=== PATIENT | female | born 1985 | race Caucasian/White ===

== ENCOUNTER 2018-04-14 09:15 | Inpatient (IN) | payer MEDICAID ==
[2018-04-14 10:02] VITALS: BMI 35.0
--- NOTE | 2018-04-14 10:09 | OBADHP ---
Datetime: 04/14/2018 10:05 Admit Comment, IP Provider: g2p at 39+weks here for induction of labor, no ctxs, vb , lof+fm obhx 1 x pmh de medc pnv all nkda psh de soch de ve /-3 a/p at 39+weks induction admit to l_d npo/ivf labs pain ma cont ally and efm cyototec anticipate Pelvic Type - PN: Adequate Extremities - PN: Normal Abdomen - PN: Normal Back - PN: Normal Breast - PN: Normal Lungs - PN: Normal Heart - PN: Normal Thyroid - PN: Normal Neurologic - PN: Normal HEENT - PN: Normal General - PN: Normal FHR - Baseline A Provider: 140 Contraction Comments Provider: none IP Hx Assessment: The History has been Reviewed and is Current Vital Signs Provider: Reviewed; Within Normal Limits IP Chief Complaint: Scheduled induction of labor NICHD Variability Prov Fetus A: Moderate 6-25bpm NICHD Accel Fetus A IP Provider: 15X15 FHR Category Provider Fetus A: Category I Dilatation, Provider: 2 Effacement, Provider: 50 Station, Provider: -3 Genitourinary Exam: Normal DTRs - PN: Normal EGA AdmitDate IP: 39.4 IP Adm Impression: Term, intrauterine IP Admit Plan: Admit to unit; Initiate labor induction protocol
[2018-04-14] MEDS ORDERED: Lactated Ringer's 1,000 ML IV SCH (10:15)
[2018-04-14] MEDS ORDERED: Penicillin G 5 Million Unit Vial IVPB ONE (10:48)
[2018-04-14 10:58] LABS: BASO % 0.3 % (0.0-2.0); EOS # 0.1 K/uL (0.0-0.7); EOS % 0.8 % (0.0-4.0); HEMOGLOBIN 10.4 g/dL (11.0-16.0); LYMPH # 2.1 K/uL (1.0-4.3); LYMPH % 22.8 % (20.0-40.0); MEAN CELL VOLUME 90.3 fL (81.0-99.0); MEAN CORPUSCULAR HEMOGLOBIN 31.1 pg (27.0-31.0); MEAN CORPUSCULAR HGB CONC 34.4 g/dL (33.0-37.0); MEAN PLATELET VOLUME 8.9 fL (7.2-11.7); MONO # 0.8 K/uL (0.0-0.8); MONO % 8.3 % (0.0-10.0); NEUT # 6.3 K/uL (1.8-7.0); NEUT % 67.8 % (50.0-75.0); RBC 3.34 Mil/uL (3.80-5.20); RED CELL DISTRIBUTION WIDTH 13.6 % (11.5-14.5); WHITE BLOOD COUNT 9.3 K/uL (4.8-10.8)
[2018-04-14] MEDS ORDERED: Oxytocin 30 UNIT 30 UNITS/500 ML BAG IV ONE ×2 (13:19→13:27)
[2018-04-14] MEDS ORDERED: Nalbuphine HCL 10 mg/ml Ampule IVP ONE (13:36)
--- NOTE | 2018-04-14 13:39 | OBPN ---
Datetime: 04/14/2018 13:37 IP Procedures Other: toth baloon IP Progress Impression: Normal progression of labor IP Procedures: Sterile Vag Exam Contraction Comments Provider: q1-5 FHR - Baseline A Provider: 130 IP Progress Note Comment: pt was examind at bed side ve 2-3/60/-2 toth balon placed start pitocin at 3 pm anticipate Vital Signs Provider: Reviewed; Within Normal Limits NICHD Accel Fetus A IP Provider: 15X15 FHR Category Provider Fetus A: Category I NICHD Variability Prov Fetus A: Moderate 6-25bpm Dilatation, Provider: 3 Effacement, Provider: 60 Station, Provider: -2
[2018-04-14] MEDS ORDERED: Nalbuphine HCL 10 mg/ml Ampule ONE (13:41)
[2018-04-14] MEDS: Penicillin G Potassium 2.5 MU in Dextrose 5% In Water 50 ML IV SCH ×2 (14:53→18:54)
[2018-04-14] MEDS ORDERED: Bupivacaine HCl/FentaNYL Cit 100 ML EPI ONE (16:07)
[2018-04-14 16:53] LABS: SQUAMOUS EPITHIAL < 1 /hpf (0-5); URINE BACTERIA RARE (<OCC); URINE BILIRUBIN NEGATIVE (NEGATIVE); URINE BLOOD NEGATIVE (NEGATIVE); URINE CLARITY Clear (Clear); URINE COLOR Straw (YELLOW); URINE GLUCOSE (UA) NORMAL (Normal); URINE LEUKOCYTE ESTERASE NEG Leu/uL (Negative); URINE PROTEIN NEGATIVE (NEGATIVE); URINE UROBILINOGEN NORMAL mg/dL (0.2-1.0)
--- NOTE | 2018-04-14 18:45 | OBPN ---
Datetime: 04/14/2018 18:43 IP Progress Impression: Normal progression of labor IP Procedures: Sterile Vag Exam FHR - Baseline A Provider: 130 IP Progress Note Comment: pt was examined at bed side ve 6/100/-1 cont pitoin anticipate Vital Signs Provider: Reviewed; Within Normal Limits NICHD Accel Fetus A IP Provider: 15X15 FHR Category Provider Fetus A: Category I NICHD Variability Prov Fetus A: Moderate 6-25bpm Dilatation, Provider: 6 Effacement, Provider: 100 Station, Provider: -1
[2018-04-14] MEDS ORDERED: Oxycodone/Acetaminophen 5/325 mg Tab PO PRN ×2 (18:48)
[2018-04-14] MEDS ORDERED: Benzocaine/Menthol 20%-0.5% Topical Spray (60 ml) TOP PRN (18:48)
--- NOTE | 2018-04-14 19:43 | OBDS ---
MATERNAL INFORMATION Estimated Blood Loss (ml): 300 Provider Comments: dr castellano private baby deliverd in [place].cord arround neck . cord gas send pblood.reduced.placente deliveerd spontaneously endometrium clean. no com LABOR SUMMARY EDC: 04/17/2018 00:00 No. Babies in Womb: 1 LABOR INFORMATION Cervical Ripening Agents: [place] Balloon Group B Beta Strep: Positive (Annotations: 03/22/18) MEMBRANES Membranes Rupture Method: Artificial Amniotic Fluid Color: Clear Amniotic Fluid Amount: Small Amniotic Fluid Odor: Normal VAGINAL DELIVERY Episiotomy: None Laceration Extension: N/A Laceration Type: None Sponge Count Correct: N/A Sharps Count Correct: N/A BABY A INFORMATION Delivery Date/Time: 04/14/2018 19:34 SHOULDER DYSTOCIA BABY A Delivery Date/Time: 04/14/2018 19:34 PRESENTATION/POSITION BABY A Presentation: Cephalic Cephalic Presentation: Vertex Vertex Position: Left Occipital Anterior Breech Presentation: N/A PLACENTA INFORMATION BABY A Placenta Method of Delivery: Spontaneous Placenta Status: Delivered IDENTIFICATION/MEDS BABY A ID Band Number: [id number] Sensor Number: [id number] CORD INFORMATION BABY A Nuchal Cord : Around Neck x1, Loose
--- NOTE | 2018-04-15 06:45 | OBPPN ---
Datetime: 04/15/2018 06:43 PP Pain Prov: Within normal limits PP Nausea Prov: Denies PP Flatus Prov: Yes PP Abdomen/Uterus Prov: Normal PP Lochia Prov: Normal PP C/S Incision Prov: Normal PP Comments Phys Exam Prov: fudus below umblicus PP Impression Prov: Normal progression PP Plan Prov: Continue present management PP Progress Note Prov: pt was zeen at bed sidem,, pain under cobtrol,nmo n/v, toletaing deirt, voidi ng,min locjia, flatus+ ppd#1 cont pp care cont harris ma encourage amb Vital Signs Provider PP: Reviewed; Within Normal Limits
--- NOTE | 2018-04-15 07:05 | NBCIR ---
Datetime: 04/14/2018 09:51 Preformed by:: dr castellano Consent Signed: Verbal Consent Obtained; Written Consent Signed and on Chart Position: Papoose Board Circumcision Time Out: Correct Patient Identity; Correct Side and Site are Marked; Accurate Procedur e Consent Form; Agreement on Procedure to be Done; Correct Patient Position; Relevant Images and Resu lts are Properly Labeled and Displayed Site Prep: Povidine Iodine Circumcision Date/Time: 04/15/2018 07:00 Equipment Used: Gomco Clamp Cheney Size: 1.3 Systemic Medications: None Complications: None Status: Excellent Cosmetic Outcome; Tolerated Procedure Well; Hemostatic Procedure Note: circ done by dr castellano. no com Datetime: 04/14/2018 09:25 PT-NAME: ANGEL BROTHERS
[2018-04-15 16:21] VITALS: RESP 18
[2018-04-15 17:26] LABS: BASO % 0.3 % (0.0-2.0); EOS # 0.1 K/uL (0.0-0.7); EOS % 0.9 % (0.0-4.0); HEMOGLOBIN 11.1 g/dL (11.0-16.0); LYMPH # 2.6 K/uL (1.0-4.3); LYMPH % 21.7 % (20.0-40.0); MEAN CELL VOLUME 90.1 fL (81.0-99.0); MEAN CORPUSCULAR HEMOGLOBIN 31.3 pg (27.0-31.0); MEAN CORPUSCULAR HGB CONC 34.7 g/dL (33.0-37.0); MEAN PLATELET VOLUME 8.7 fL (7.2-11.7); MONO # 1.1 K/uL (0.0-0.8); MONO % 8.9 % (0.0-10.0); NEUT # 8.3 K/uL (1.8-7.0); NEUT % 68.2 % (50.0-75.0); RBC 3.55 Mil/uL (3.80-5.20); WHITE BLOOD COUNT 12.1 K/uL (4.8-10.8)
[2018-04-16 11:16] VITALS: BP 111/80; PULSE 80; TEMP 98.3; O2SAT 100
== END 2018-04-16 13:50 | disposition home or self-care (01) | DRG 373 ==
LOC: C.EROB 09:15 → C.4D 10:02 → C.4M 22:00
PROVIDERS: ADMIT Obstetrics & Gynecology; ATTEND Obstetrics & Gynecology
PROC: 10E0XZZ Delivery of Products of Conception, External Approach (ICD-10-PCS; principal; 2018-04-14)
DX: O99.824 Streptococcus B carrier state complicating childbirth (principal); Z3A.39 39 weeks gestation of pregnancy; O69.81X0 Labor and delivery complicated by cord around neck, without compression, not applicable or unspecified; Z37.0 Single live birth